=== PATIENT | male | born 1990 ===

== ENCOUNTER 2017-02-24 06:42 | Emergency (ER) | payer SELFPAY ==
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
== END 2017-02-24 07:20 ==
LOC: ER 06:59
PROC: 0HQGXZZ Repair Left Hand Skin, External Approach (ICD-10-PCS; principal; 2017-02-24)
DX: S51.812A Laceration without foreign body of left forearm, initial encounter (principal); S86.911A Strain of unspecified muscle(s) and tendon(s) at lower leg level, right leg, initial encounter; S46.912A Strain of unspecified muscle, fascia and tendon at shoulder and upper arm level, left arm, initial encounter; W45.8XXA Other foreign body or object entering through skin, initial encounter; Y92.410 Unspecified street and highway as the place of occurrence of the external cause